=== PATIENT | male | born 1995 | race Hispanic/Latino ===

== ENCOUNTER 2018-06-28 09:54 | Emergency (ER) | payer SELFPAY ==
[2018-06-28 10:34] LABS: Absolute Lymphocytes (CBC) 0.7 K/uL (0.7-4.9); Absolute Monocytes 0.7 K/uL (0.1-1.3); Basophils % 0.1 % (0-1.3); Eosinophils % 0.6 % (0-4.4); Hematocrit 49.4 % (39.6-49.0); Lymphocytes % 4.8 % (15.3-44.8); MCH 28.9 pg (27.0-35.0); MPV 10.3 fL (7.6-11.3); Monocytes % 4.4 % (3.3-12.3); RBC Red Blood Cell Count 5.89 M/uL (4.33-5.43)
[2018-06-28 11:00] LABS: Urine Blood NEGATIVE (NEG); Urine Glucose NEGATIVE (NEG); Urine Protein TRACE (NEG); Urine pH 7.5 (5.0-7.0)
[2018-06-28 11:01] LABS: ALT/SGPT 74 U/L (12-78); AST/SGOT 28 U/L (15-37); Alkaline Phosphatase 116 U/L (45-117); BUN Blood Urea Nitrogen 14 mg/dL (7-18); Bicarbonate 23 mmol/L (21-32); Bilirubin Direct 0.2 mg/dL (0-0.2); Bilirubin Total 0.9 mg/dL (0.2-1.0); Glucose Level 114 mg/dL (74-106); Lipase 104 U/L (73-393); Potassium 3.8 mmol/L (3.5-5.1); Sodium Level 138 mmol/L (136-145)
--- NOTE | 2018-06-28 11:30 | RAD REPORT ---
EXAM DESCRIPTION: CTAbdomen Pelvis W Contrast - 06/28/2018 11:23 am CLINICAL HISTORY: Abdominal pain. iv contrast only;Abd pain COMPARISON: No comparisons TECHNIQUE: Biphasic CT imaging of the abdomen and pelvis was performed with 100 ml non-ionic IV cont rast. All CT scans are performed using dose optimization technique as appropriate and may include automated exposure control or mA/KV adjustment according to patient size. FINDINGS: The lung bases are clear. The liver, spleen, pancreas, adrenal glands and kidneys are within normal limits. Small benign 12 mm left renal cyst. No bowel obstruction, free air, free fluid or abscess. The appendix is normal. No evidence of signi ficant lymphadenopathy. No suspicious bony findings. IMPRESSION: No acute intra-abdominal or pelvic finding.
[2018-06-28 11:58] LABS: Platelet Estimate ADEQ; Urine White Blood Cell Casts OK
[2018-06-28 11:59] LABS: Blood Morphology Comment NOT SEEN (NOT SEEN)
--- NOTE | 2018-06-28 12:31 | ER ---
Nurse's Notes [facility] Name: Merrick Jordan Age: 22 yrs Sex: Male : 1995 Arrival Date: 06/28/2018 Time: 09:55 Bed 14 Private MD: Diagnosis: Vomiting;Diarrhea, unspecified Presentation: 06/28 09:58 Presenting complaint: Patient states: "I woke up at 4 in the morning with really bad aj1 stomach pain, I had diarrhea and then took a hot shower and I felt like I was going to pass out and then started vomiting. I still feel the same way. I feel like vomiting" Reports epigastric pain, states "it feels like bubbling" Denies fever. Transition of care: patient was not received from another setting of care. Onset of symptoms was June 28, 2018 at 04:00. Risk Assessment: Do you want to hurt yourself or someone else? Patient reports no desire to harm self or others. Initial Sepsis Screen: Does the patient meet any 2 criteria? HR > 90 bpm. No. Patient's initial sepsis screen is negative. Does the patient have a suspected source of infection? Yes: Acute abdominal pain. Care prior to arrival: None. 09:58 Method Of Arrival: Ambulatory aj1 09:58 Acuity: TU 3 aj1 Triage Assessment: 10:00 General: Appears in no apparent distress. uncomfortable, Behavior is calm, cooperative, aj1 appropriate for age. Pain: Complains of pain in epigastric area Pain currently is 7 out of 10 on a pain scale. Neuro: Level of Consciousness is awake, alert, obeys commands. Cardiovascular: Patient's skin is warm and dry. Respiratory: Airway is patent Respiratory effort is even, unlabored, Respiratory pattern is regular, symmetrical. GI: Reports diarrhea, nausea, vomiting. Historical: - Allergies: 10:00 NKDA; aj1 - Home Meds: 10:00 None [Active]; aj1 - PMHx: 10:00 None; aj1 - PSHx: 10:00 ankle surgery; aj1 - Immunization history:: Flu vaccine is not up to date. - Social history:: Smoking status: Patient/guardian denies using tobacco. - Ebola Screening: : Patient denies travel to an Ebola-affected area in the 21 days before illness onset. Screenin:37 Abuse screen: Denies threats or abuse. Nutritional screening: No deficits noted. la1 Tuberculosis screening: No symptoms or risk factors identified. Fall Risk None identified. Assessment: 10:36 General: Appears in no apparent distress. Behavior is calm, cooperative. Pain: Denies la1 pain. Neuro: Level of Consciousness is awake, alert, obeys commands, Oriented to person, place, time, situation. Cardiovascular: Capillary refill < 3 seconds Patient's skin is warm and dry. Respiratory: Airway is patent Respiratory effort is even, unlabored, Respiratory pattern is regular, symmetrical, Breath sounds are clear bilaterally. GI: Abdomen is round non-distended, Bowel sounds present X 4 quads. Abd is soft and non tender X 4 quads. Reports diarrhea, nausea, vomiting. : No signs and/or symptoms were reported regarding the genitourinary system. Vital Signs: 10:00 BP 140 / 92; Pulse 103; Resp 18; Temp 97.8; Pulse Ox 99% on R/A; Weight 113.4 kg (R); aj1 Height 5 ft. 11 in. (180.34 cm) (R); Pain 7/10; 12:12 BP 134 / 74; Pulse 94; Resp 16; Temp 97.2; Pulse Ox 98% on R/A; la1 10:00 Body Mass Index 34.87 (113.40 kg, 180.34 cm) aj1 ED Course: 09:55 Patient arrived in ED. tw3 09:59 Triage completed. aj1 10:00 Arm band placed on Patient placed in an exam room. aj1 10:02 Taylor Patel FNP-C [facility]. kb 10:02 Saúl Blankenship MD is Attending Physician. kb 10:25 Inserted saline lock: 20 gauge in right antecubital area, using aseptic technique. gm Blood collected. 10:29 Chung Bowen, RN is Primary Nurse. la1 10:37 Placed in gown. Bed in low position. Call light in reach. Pulse ox on. NIBP on. la1 11:23 CT Abd/Pelvis - W/Contrast In Process Unspecified. EDMS 12:12 No provider procedures requiring assistance completed. IV discontinued, intact, la1 bleeding controlled, No redness/swelling at site. Pressure dressing applied. Administered Medications: 10:29 Drug: Zofran 4 mg Route: IVP; Site: right antecubital; la1 12:11 Follow up: Response: No adverse reaction la1 10:30 Drug: NS 0.9% 1000 ml Route: IV; Rate: 1000 ml; Site: right antecubital; la1 12:11 Follow up: IV Status: Completed infusion la1 Outcome: 12:00 Discharge ordered by MD. novak 12:12 Patient left the ED. la1 Signatures: Dispatcher [employer] EDTaylor Alvares, NICHO-C NICHO-Rebecca Parra RN RN aj1 Chung Bowen RN RN la1 Eunice Damon tw3 Yocasta Holley
--- NOTE | 2018-06-28 12:31 | EDPHYS ---
Physician Documentation [facility] Name: Merrick Jordan Age: 22 yrs Sex: Male : 1995 Arrival Date: 06/28/2018 Time: 09:55 Bed 14 Private MD: MARILEE Physician Saúl Blankenship HPI: 06/28 10:31 This 22 yrs old Male presents to ER via Ambulatory with complaints of kb Vomiting/Diarrhea. 10:31 The patient presents to the emergency department with nausea, vomiting, diarrhea. kb Onset: The symptoms/episode began/occurred this morning, at 04:00. Possible causes: unknown. The symptoms are aggravated by nothing. The symptoms are alleviated by nothing. Associated signs and symptoms: Pertinent positives: diarrhea, nausea, vomiting, Pertinent negatives: abdominal pain, fever, GI bleeding, hematuria. Severity of symptoms: At their worst the symptoms were mild moderate in the emergency department the symptoms are unchanged. The patient has not experienced similar symptoms in the past, but family has similar symptoms, brother. The patient has not recently seen a physician. Pt reports he woke up with abd cramping at 0400. "felt like I needed to use the bathroom so I did, but it was diarrhea." States he only had that one episode of diarrhea. Took a hot shower and got lightheaded and nauseated. Has vomited 3 times. Denies abd pain, reports "it feels bubbly.". Historical: - Allergies: 10:00 NKDA; aj1 - Home Meds: 10:00 None [Active]; aj1 - PMHx: 10:00 None; aj1 - PSHx: 10:00 ankle surgery; aj1 - Immunization history:: Flu vaccine is not up to date. - Social history:: Smoking status: Patient/guardian denies using tobacco. - Ebola Screening: : Patient denies travel to an Ebola-affected area in the 21 days before illness onset. ROS: 10:34 Constitutional: Negative for fever, chills, and weight loss, Cardiovascular: Negative kb for chest pain, palpitations, and edema, Respiratory: Negative for shortness of breath, cough, wheezing, and pleuritic chest pain, Back: Negative for injury and pain, : Negative for injury, bleeding, discharge, and swelling, MS/Extremity: Negative for injury and deformity, Skin: Negative for injury, rash, and discoloration, Neuro: Negative for headache, weakness, numbness, tingling, and seizure. 10:34 Abdomen/GI: Positive for nausea, vomiting, and diarrhea. Exam: 10:34 Constitutional: This is a well developed, well nourished patient who is awake, alert, kb and in no acute distress. Head/Face: Normocephalic, atraumatic. ENT: Nares patent. No nasal discharge, no septal abnormalities noted. Tympanic membranes are normal and external auditory canals are clear. Oropharynx with no redness, swelling, or masses, exudates, or evidence of obstruction, uvula midline. Mucous membranes moist. Neck: Trachea midline, no thyromegaly or masses palpated, and no cervical lymphadenopathy. Supple, full range of motion without nuchal rigidity, or vertebral point tenderness. No Meningismus. Chest/axilla: Normal chest wall appearance and motion. Nontender with no deformity. No lesions are appreciated. Cardiovascular: Regular rate and rhythm with a normal S1 and S2. No gallops, murmurs, or rubs. Normal PMI, no JVD. No pulse deficits. Respiratory: Lungs have equal breath sounds bilaterally, clear to auscultation and percussion. No rales, rhonchi or wheezes noted. No increased work of breathing, no retractions or nasal flaring. Abdomen/GI: Soft, non-tender, with normal bowel sounds. No distension or tympany. No guarding or rebound. No evidence of tenderness throughout. Back: No spinal tenderness. No costovertebral tenderness. Full range of motion. Skin: Warm, dry with normal turgor. Normal color with no rashes, no lesions, and no evidence of cellulitis. MS/ Extremity: Pulses equal, no cyanosis. Neurovascular intact. Full, normal range of motion. Neuro: Awake and alert, GCS 15, oriented to person, place, time, and situation. Cranial nerves II-XII grossly intact. Motor strength 5/5 in all extremities. Sensory grossly intact. Cerebellar exam normal. Normal gait. Vital Signs: 10:00 BP 140 / 92; Pulse 103; Resp 18; Temp 97.8; Pulse Ox 99% on R/A; Weight 113.4 kg (R); aj1 Height 5 ft. 11 in. (180.34 cm) (R); Pain 7/10; 12:12 BP 134 / 74; Pulse 94; Resp 16; Temp 97.2; Pulse Ox 98% on R/A; la1 10:00 Body Mass Index 34.87 (113.40 kg, 180.34 cm) aj1 MDM: 10:02 Patient medically screened. kb 10:35 Data reviewed: vital signs, nurses notes. Data interpreted: Pulse oximetry: on room air kb is 99 %. Interpretation: normal. 11:33 Counseling: I had a detailed discussion with the patient and/or guardian regarding: the kb historical points, exam findings, and any diagnostic results supporting the discharge/admit diagnosis, lab results, radiology results, the need for outpatient follow up, a family practitioner, to return to the emergency department if symptoms worsen or persist or if there are any questions or concerns that arise at home. 12:00 Response to treatment: the patient's symptoms have markedly improved after treatment, kb Pt reports "I feel so much better now.". 06/28 10:10 Order name: Basic Metabolic Panel; Complete Time: 11:02 kb 06/28 10:10 Order name: CBC with Diff; Complete Time: 12:00 kb 06/28 10:10 Order name: Hepatic Function; Complete Time: 11:02 kb 06/28 10:10 Order name: Lipase; Complete Time: 11:02 kb 06/28 10:28 Order name: Urine Dipstick--Ancillary (enter results); Complete Time: 11:01 bd 06/28 10:37 Order name: CBC Smear Scan; Complete Time: 12:00 EDMS 06/28 10:10 Order name: IV Saline Lock; Complete Time: 10:30 kb 06/28 10:10 Order name: Labs collected and sent; Complete Time: 10:30 kb 06/28 11:04 Order name: CT Abd/Pelvis - W/Contrast; Complete Time: 11:33 kb 06/28 11:33 Order name: PO challenge; Complete Time: 11:46 kb Administered Medications: 10:29 Drug: Zofran 4 mg Route: IVP; Site: right antecubital; la1 12:11 Follow up: Response: No adverse reaction la1 10:30 Drug: NS 0.9% 1000 ml Route: IV; Rate: 1000 ml; Site: right antecubital; la1 12:11 Follow up: IV Status: Completed infusion la1 Disposition: 13:10 Co-signature as Attending Physician, Saúl Blankenship MD I agree with the assessment and patrica plan of care. Disposition: 06/28/18 12:00 Discharged to Home. Impression: Vomiting, Diarrhea, unspecified. - Condition is Stable. - Discharge Instructions: Food Choices to Help Relieve Diarrhea, Adult, Nausea and Vomiting, Adult, Xfuo-[id number], Diarrhea, Adult, [id number]. - Prescriptions for Bentyl 20 mg Oral Tablet - take 1 tablet by ORAL route every 6 hours As needed; 20 tablet. Zofran 4 mg Oral Tablet - take 1 tablet by ORAL route every 6 hours As needed; 20 tablet. - Medication Reconciliation Form, Thank You Letter, Antibiotic Education, Prescription Opioid Use form. - Follow up: Emergency Department; When: As needed; Reason: Worsening of condition. Follow up: Private Physician; When: 2 - 3 days; Reason: Recheck today's complaints, Continuance of care, Re-evaluation by your physician. Signatures: Dispatcher [employer] EDTaylor Alvares FNP-C FNP-Rebecca Parra, RN RN aj1 Saúl Blankenship MD MD cha Attema, Lee, RN RN la1 Corrections: (The following items were deleted from the chart) 12:12 12:00 06/28/2018 12:00 Discharged to Home. Impression: Vomiting; Diarrhea, unspecified. la1 Condition is Stable. Discharge Instructions: Food Choices to Help Relieve Diarrhea, Adult, Nausea and Vomiting, Adult, Ugmq-[id number], Diarrhea, Adult, Xnom-at-[id number]. Prescriptions for Bentyl 20 mg Oral Tablet - take 1 tablet by ORAL route every 6 hours As needed; 20 tablet, Zofran 4 mg Oral Tablet - take 1 tablet by ORAL route every 6 hours As needed; 20 tablet. and Forms are Medication Reconciliation Form, Thank You Letter, Antibiotic Education, Prescription Opioid Use. Follow up: Emergency Department; When: As needed; Reason: Worsening of condition. Follow up: Private Physician; When: 2 - 3 days; Reason: Recheck today's complaints, Continuance of care, Re-evaluation by your physician. kb
[2018-06-28 12:52] VITALS: BP 134/74; TEMP 97.2; O2SAT 98
== END 2018-06-28 12:12 | disposition home or self-care (01) ==
LOC: ER 09:54
DX: R19.7 Diarrhea, unspecified (principal)
CPT/HCPCS: 36415; 74177; 80048; 80076; 81003; 83690; 85025; 96361; 96374; 99284; Q9967

== ENCOUNTER 2023-01-14 07:11 | Emergency (ER) | payer SELFPAY ==
--- NOTE | 2023-01-14 07:33 | ER ---
Nurse's Notes [facility] Name: Merrick Jordan Age: 27 yrs Sex: Male : 1995 Arrival Date: 01/14/2023 Time: 07:11 Bed 11 Private MD: Diagnosis: Acute pharyngitis, unspecified;Otalgia, right ear Presentation: 01/14 07:19 Chief complaint: Patient states: sore throat, nausea, right ear pain X 1 day. ld1 Coronavirus screen: At this time, the client does not indicate any symptoms associated with coronavirus-19. Ebola Screen: No symptoms or risks identified at this time. Initial Sepsis Screen: Does the patient meet any 2 criteria? No. Patient's initial sepsis screen is negative. Does the patient have a suspected source of infection? No. Patient's initial sepsis screen is negative. Risk Assessment: Do you want to hurt yourself or someone else? Patient reports no desire to harm self or others. Onset of symptoms was January 14, 2023. 07:19 Method Of Arrival: Ambulatory ld1 07:19 Acuity: TU 4 ld1 Triage Assessment: 07:20 General: Appears in no apparent distress. comfortable, Behavior is calm, cooperative, ld1 appropriate for age. Pain: Denies pain. Pain: Complains of pain in right ear Pain does not radiate. Pain currently is 6 out of 10 on a pain scale. Quality of pain is described as throbbing. EENT: Reports pain in right ear. Neuro: Level of Consciousness is awake, alert, obeys commands, Oriented to person, place, time, situation. Cardiovascular: Capillary refill < 3 seconds Patient's skin is warm and dry. Respiratory: Airway is patent Respiratory effort is even, unlabored. GI: Abdomen is flat, non-distended, Reports nausea. : No signs and/or symptoms were reported regarding the genitourinary system. Derm: No signs and/or symptoms reported regarding the dermatologic system. Musculoskeletal: No signs and/or symptoms reported regarding the musculoskeletal system. Historical: - Allergies: 07:20 NKDA; ld1 - PMHx: 07:20 None; ld1 - PSHx: 07:20 Ankle surgery; ld1 - Immunization history:: Adult Immunizations up to date, Client reports receiving the 2nd dose of the Covid vaccine. - Social history:: Smoking status: Patient denies any tobacco usage or history of. Patient/guardian denies using alcohol. - Family history:: not pertinent. Screenin:21 [facility] ED Fall Risk Assessment (Adult) History of falling in the last 3 months, ld1 including since admission No falls in past 3 months (0 pts). Abuse screen: Denies threats or abuse. Denies injuries from another. Nutritional screening: No deficits noted. Tuberculosis screening: No symptoms or risk factors identified. Assessment: 07:21 Reassessment: See triage assessment. ld1 Vital Signs: 07:19 BP 160 / 87; Pulse 58; Resp 18; Temp 98(O); Pulse Ox 96% on R/A; Weight 97.52 kg; ld1 Height 5 ft. 11 in. ; Pain 0/10; 07:19 Body Mass Index 29.99 (97.52 kg, 180.34 cm) ld1 07:19 Pain Scale: Adult ld1 ED Course: 07:15 Patient arrived in ED. im 07:20 Triage completed. ld1 07:20 Arm band placed on right wrist. ld1 07:21 Patient has correct armband on for positive identification. Bed in low position. Call ld1 light in reach. Side rails up X2. Pulse ox on. NIBP on. Door closed. Noise minimized. Warm blanket given. 07:21 No provider procedures requiring assistance completed. ld1 07:28 Miguel Cruz MD is Attending Physician. rt 07:36 Beth Childress RN is Primary Nurse. ld1 07:37 IV discontinued, intact, bleeding controlled, No redness/swelling at site. ld1 Administered Medications: No medications were administered Medication: 07:21 VIS not applicable for this client. ld1 Outcome: 07:32 Discharge ordered by . rt 07:36 Discharged to home ambulatory. ld1 07:36 Condition: stable 07:36 Discharge instructions given to patient, Instructed on discharge instructions, follow up and referral plans. medication usage, Demonstrated understanding of instructions, follow-up care, medications, Prescriptions given X 1. 07:37 Patient left the ED. ld1 Signatures: Beth Childress RN RN ld1 Miguel Cruz MD MD rt Mayte Granado im
--- NOTE | 2023-01-14 07:33 | EDPHYS ---
Physician Documentation [facility] [place], [place] Name: Merrick Jordan Age: 27 yrs Sex: Male : 1995 Arrival Date: 01/14/2023 Time: 07:11 Bed 11 Private MD: ED Physician Miguel Cruz HPI: 01/14 07:34 This 27 yrs old Male presents to ER via Ambulatory with complaints of Ear rt Pain, Sore Throat. 07:34 Patient presents to the ED with 1 day of sore throat, right ear pain. He denies any rt cough, fever, chills. She does report a nausea that is since resolved, no abdominal pain. No other acute complaints at this time. Pain is aching nature, nonradiating, no other aggravating or alleviating factors.. Historical: - Allergies: 07:20 NKDA; ld1 - PMHx: 07:20 None; ld1 - PSHx: 07:20 Ankle surgery; ld1 - Immunization history:: Adult Immunizations up to date, Client reports receiving the 2nd dose of the Covid vaccine. - Social history:: Smoking status: Patient denies any tobacco usage or history of. Patient/guardian denies using alcohol. - Family history:: not pertinent. ROS: 07:34 Constitutional: Negative for fever, chills, and weight loss, Cardiovascular: Negative rt for chest pain, palpitations, and edema, Respiratory: Negative for shortness of breath, cough, wheezing, and pleuritic chest pain, Abdomen/GI: Negative for abdominal pain, nausea, vomiting, diarrhea, and constipation, MS/Extremity: Negative for injury and deformity, Skin: Negative for injury, rash, and discoloration, Neuro: Negative for headache, weakness, numbness, tingling, and seizure, Psych: Negative for depression, anxiety, suicide ideation, homicidal ideation, and hallucinations. 07:34 ENT: Positive for ear pain, sore throat. Exam: 07:34 Constitutional: This is a well developed, well nourished patient who is awake, alert, rt and in no acute distress. Head/Face: Normocephalic, atraumatic. Chest/axilla: Normal chest wall appearance and motion. Nontender with no deformity. No lesions are appreciated. Cardiovascular: Regular rate and rhythm with a normal S1 and S2. No gallops, murmurs, or rubs. Normal PMI, no JVD. No pulse deficits. Respiratory: Lungs have equal breath sounds bilaterally, clear to auscultation and percussion. No rales, rhonchi or wheezes noted. No increased work of breathing, no retractions or nasal flaring. Abdomen/GI: Soft, non-tender, with normal bowel sounds. No distension or tympany. No guarding or rebound. No evidence of tenderness throughout. Neuro: Awake and alert, GCS 15, oriented to person, place, time, and situation. Cranial nerves II-XII grossly intact. Motor strength 5/5 in all extremities. Sensory grossly intact. Cerebellar exam normal. Normal gait. Psych: Awake, alert, with orientation to person, place and time. Behavior, mood, and affect are within normal limits. 07:34 ENT: Posterior pharyngeal erythema without exudates, 2+ tonsils, symmetric, uvula is midline, cerumen noted in the bilateral EACs, effusion noted to the right ear, difficult to characterize due to cerumen. Vital Signs: 07:19 BP 160 / 87; Pulse 58; Resp 18; Temp 98(O); Pulse Ox 96% on R/A; Weight 97.52 kg; ld1 Height 5 ft. 11 in. ; Pain 0/10; 07:19 Body Mass Index 29.99 (97.52 kg, 180.34 cm) ld1 07:19 Pain Scale: Adult ld1 MDM: 07:28 Patient medically screened. rt 07:34 Differential diagnosis: otitis media, otitis externa, Pharyngitis, strep pharyngitis, rt URI. Data reviewed: vital signs, nurses notes. Test considered but Not performed: Labs: Strong appearance of streptococcal pharyngitis, high pretest probability, will treat empirically without testing.. CT: Very low suspicion for RPA, SERVICE ORDER CLERK, Swetha's angina. CT scan not indicated.. Counseling: I had a detailed discussion with the patient and/or guardian regarding: the historical points, exam findings, and any diagnostic results supporting the discharge/admit diagnosis, the need for outpatient follow up, to return to the emergency department if symptoms worsen or persist or if there are any questions or concerns that arise at home. Administered Medications: No medications were administered Disposition Summary: 01/14/23 07:32 Discharge Ordered Location: Home rt Problem: new rt Symptoms: are unchanged rt Condition: Stable rt Diagnosis - Acute pharyngitis, unspecified rt - Otalgia, right ear rt Followup: rt - With: Private Physician - When: 2 - 3 days - Reason: Discharge Instructions: - Discharge Summary Sheet rt - Otitis Media, Adult rt - Pharyngitis rt Forms: - Medication Reconciliation Form rt - Thank You Letter rt - Antibiotic Education rt - Prescription Opioid Use rt Prescriptions: - Amoxicillin 875 mg Oral Tablet - take 1 tablet by ORAL route every 12 hours for 10 days; 20 tablet; Refills: 0, rt Product Selection Permitted Signatures: Beth Childress RN RN ld1 Miguel Cruz MD MD rt
[2023-01-14 07:41] VITALS: BP 160/87; TEMP 98; O2SAT 96
== END 2023-01-14 07:37 | disposition home or self-care (01) ==
LOC: ER 07:11
DX: J02.9 Acute pharyngitis, unspecified (principal); H92.01 Otalgia, right ear
CPT/HCPCS: 99283